=== PATIENT | female | born 1960 | race African-American/Black ===

== ENCOUNTER 2022-05-09 15:10 | Emergency (ER) | payer SELFPAY ==
[~2022-05-09] VITALS: Ht 157.5 cm; Wt 62.0 kg
[2022-05-09 15:23] VITALS: BP 145/80
[2022-05-09] MEDS ORDERED: LIDOCAINE 5% PATCH TOP SCH (17:45)
[2022-05-09] MEDS ORDERED: KETOROLAC 60MG/2ML VIAL IM ONE (17:45)
== END 2022-05-09 18:15 | disposition home or self-care (01) ==
LOC: ER 15:10
DX: S13.4XXA Sprain of ligaments of cervical spine, initial encounter (principal); F12.10 Cannabis abuse, uncomplicated; Z98.890 Other specified postprocedural states; V44.5XXA Car driver injured in collision with heavy transport vehicle or bus in traffic accident, initial encounter; Y93.89 Activity, other specified; Y92.488 Other paved roadways as the place of occurrence of the external cause
CPT/HCPCS: 99281